=== PATIENT | female | born 1980 | race African-American/Black ===

== ENCOUNTER 2019-03-23 18:52 | Emergency (ER) | payer OTHER ==
[2019-03-23] MEDS ORDERED: ALBUTEROL SO4 2.5/IPRATROPIUM 0.5 INH SOL 3 ML VIAL.NEB. NEB ONE ×2 (18:58→19:24)
[2019-03-23] MEDS ORDERED: DEXAMETHASONE SOD PHOSPHATE 10 MG/1 ML VIAL IM ONE (18:58)
--- NOTE | 2019-03-23 18:58 | PDOC ---
Rapid Medical Evaluation Chief Complaint: Asthma Time Seen by Provider: 03/23/19 18:57 Medical Evaluation: Allergies Allergy/AdvReac Type Severity Reaction Status Date / Time iodine Allergy Verified 10/04/15 16:10 shellfish derived Allergy Verified 10/04/15 16:09 03/23/19 18:57 I have performed a brief in-person evaluation of this patient. The patient presents with a chief complaint of: h/o Asthma and 1 park cigarette smoking SOB due to Asthma since yesterday. report ran out of inhaler Pertinent physical exam findings: no respiratory distress. lungs CTAB I have ordered the following: duoneb. decadron The patient will proceed to the ED for further evaluation. 03/23/19 19:00 Discharge Disposition - Diagnosis Bronchospasm, acute Asthma Qualifiers: Asthma severity: mild Asthma persistence: intermittent Asthma complication type : with acute exacerbation Qualified Code(s): J45.21 - Mild intermittent asthma with (acute) exacerbation - Discharge Dispostion Condition at time of disposition: Stable - Referrals - Patient Instructions - Post Discharge Activity
[2019-03-23 18:59] VITALS: BP 154/79; PULSE 94; TEMP 98.2; BMI 46.5
[2019-03-23] MEDS ORDERED: DEXAMETHASONE SOD PHOSPHATE 4 MG/1 ML VIAL ONE (19:24)
--- NOTE | 2019-03-23 19:35 | PDOC ---
History of Present Illness - General Chief Complaint: Asthma Stated Complaint: SOB Time Seen by Provider: 03/23/19 18:57 History Source: Patient Exam Limitations: No Limitations - History of Present Illness Initial Comments: 03/23/19 19:26 Patient is here with complaints of asthma exacerbation. States acute exacerbations are becoming more frequent although admits is a smoker and has seasonal ALLERGIES all of which exacerbate her asthma. Denies fever, headache or earache sore throat pain. States ran out of her Proventil pump 03/23/19 19:27 03/23/19 19:37 Timing/Duration: reports: getting worse Severity: reports: mild, moderate Possible Cause: Yes: allergen exposure, smoke exposure Modifying Factors: improves with: albuterol inhaler, coughing Associated Symptoms: reports: chest pain/soreness, cough, nasal congestion, nasal drainage. denies: fever/chills Past History - Travel Traveled outside of the country in the last 30 days: No Close contact w/someone who was outside of country & ill: No - Past Medical History Allergies/Adverse Reactions: Allergies Allergy/AdvReac Type Severity Reaction Status Date / Time iodine Allergy Verified 03/23/19 18:59 shellfish derived Allergy Verified 03/23/19 18:59 Home Medications: Ambulatory Orders Albuterol Sulfate Inhaler - [Ventolin HFA Inhaler -] 1 - 2 inh PO Q4H #1 inhaler 03/23/19 predniSONE [Deltasone -] 20 mg PO BID #8 tablet 03/23/19 Asthma: Yes COPD: No - Suicide/Smoking/Psychosocial Hx Smoking History: Current every day smoker Number of Cigarettes Smoked Daily: 10 Information on smoking cessation initiated: No 'Breaking Loose' booklet given: 10/04/15 Hx Alcohol Use: No Drug/Substance Use Hx: No Review of Systems - Review of Systems Able to Perform ROS?: Yes Is the patient limited Amharic proficient: Yes Constitutional: Yes: Symptoms Reported, See HPI, Malaise. No: Fever HEENTM: Yes: Symptoms Reported, See HPI, Nose Congestion, Throat Pain Respiratory: Yes: Symptoms reported, See HPI, Cough, Wheezing Musculoskeletal: No: Symptoms Reported All Other Systems: Reviewed and Negative *Physical Exam - Vital Signs Last Vital Signs Temp Pulse Resp BP Pulse Ox 98.2 F 94 H 20 154/79 100 03/23/19 18:57 03/23/19 18:57 03/23/19 18:57 03/23/19 18:57 03/23/19 18:57 - Physical Exam General Appearance: Yes: Nourished, Appropriately Dressed, Apparent Distress, Mild Distress HEENT: positive: EOMI, SHAWNA, Normal ENT Inspection, TMs Normal, Pharynx Normal ( did posterior sinus drainage), Nasal Congestion, Rhinorrhea Neck: positive: Supple. negative: Tender, Lymphadenopathy (R), Lymphadenopathy (L) Respiratory/Chest: positive: Wheezing. negative: Lungs Clear (tight inspiratory breath sounds with expiratory wheezing worse on the left than the right), Normal Breath Sounds, Respiratory Distress Cardiovascular: positive: Regular Rhythm Gastrointestinal/Abdominal: positive: Soft. negative: Tender Extremity: positive: Normal Capillary Refill, Normal Inspection Integumentary: positive: Dry, Warm, Pale Neurologic: positive: creative engagement director II-XII NML intact, Fully Oriented, Alert, Normal Mood/ Affect, Normal Response, Motor Strength 5/5 Progress Note - Progress Note Progress Note: Asthma exacerbation, much improved after DuoNeb rid administration. *DC/Admit/Observation/Transfer Diagnosis at time of Disposition: Bronchospasm, acute Asthma Qualifiers: Asthma severity: mild Asthma persistence: intermittent Asthma complication type : with acute exacerbation Qualified Code(s): J45.21 - Mild intermittent asthma with (acute) exacerbation - Discharge Dispostion Disposition: HOME Condition at time of disposition: Stable - Prescriptions Prescriptions: Albuterol Sulfate Inhaler - [Ventolin HFA Inhaler -] 1 - 2 inh PO Q4H #1 inhaler - Referrals Referrals: Andrea Avendano [Primary Care Provider] - - Patient Instructions Printed Discharge Instructions: Asthma -- Adult Additional Instructions: Rest, drink lots of fluids: Teas, water, soups, Pedialyte Saltwater gargles Steamy showers/seem to face break up mucus Avoid contact with others until fevers and cough resolved Lots of handwashing and good hygiene Continue [id number] medications for symptomatic relief Tylenol or Motrin for fever and pain Continue albuterol inhaler , 2 puffs every 4-6 hours for the next 2 days then as needed for continued cough Prednisone as directed until completed Followup with private physician in one to 2 days Return to emergency department / pediatric hospital for worsened symptoms, fevers, dehydration - Post Discharge Activity Forms/Work/School Notes: Back to Work
== END 2019-03-23 19:53 | disposition home or self-care (01) ==
LOC: JERFT 18:52
PROC: 3E0233Z Introduction of Anti-inflammatory into Muscle, Percutaneous Approach (ICD-10-PCS; principal; 2019-03-23)
PROC: 3E0F7GC Introduction of Other Therapeutic Substance into Respiratory Tract, Via Natural or Artificial Opening (ICD-10-PCS; 2019-03-23)
DX: J45.21 Mild intermittent asthma with (acute) exacerbation (principal); F17.210 Nicotine dependence, cigarettes, uncomplicated; R06.2 Wheezing
CPT/HCPCS: 99281-25; J1100

== ENCOUNTER 2019-11-13 06:26 | Emergency (ER) | payer OTHER ==
[2019-11-13 06:54] VITALS: BMI 35.9
--- NOTE | 2019-11-13 07:03 | PDOC ---
History of Present Illness - General Chief Complaint: Cold Symptoms Stated Complaint: ASTHMA Time Seen by Provider: 11/13/19 07:02 - History of Present Illness Initial Comments: HPI: 39yo F with PMH of asthma presenting with shortness of breath since this morning. Patient state her symptoms feel like her asthma which can be triggered by her allergy to cats and cold weather, of which patient has been exposed to at home. Feeling better in the ED now that she is away from those things. Has used her inhaler at home such that it has run out. Also has a nebulizer machine , but it has been non-functional due to broken tubing. Never been intubated or hospitalized for asthma. Last had an exacerbation about a month ago for which she was prescribed steroids. Reports congestion and dry cough. No chest pain. Denies sick contacts or recent travel. No fevers or chills. ROS: Constitutional: no fever, no chills HEENT: no throat pain, no dysphagia Cardiovascular: no chest pain, no palpitations Respiratory: +cough, +shortness of breath Gastrointestinal: no abdominal pain, no nausea Genitourinary: no dysuria, no hematuria Musculoskeletal: no myalgia, no arthralgia Skin: no rash, no itching Neurologic: no headache, no weakness PE: General: Awake, alert, and fully oriented, in no acute distress Head: No signs of trauma Eyes: EOMI, sclera anicteric ENT: Moist mucus membranes Neck: Normal ROM, supple Lungs: Scant wheezes at left base, otherwise clear lungs; Normal breath sounds Cardio: Regular rhythm, S1 and S2 present Abdomen: Soft, nontender Extremities: Normal range of motion, Distal pulses present SKIN: Warm, Dry, normal turgor Neurologic: Cranial nerves II through XII grossly intact. Normal speech ED Course/MDM: DDX including but not limited to asthma exacerbation, pneumonia, URI, PE, ACS Presentation consistent with pneumonia with wheezes on exam Patient is afebrile, I have low suspicion for pneumonia Will treat with duoneb and reassess 11/13/19 07:03 Improved lung exam Prescriptions sent to pharmacy including flovent, albuterol inhaler, and nebulizer kit Return precautions Stable for discharge Past History - Past Medical History Allergies/Adverse Reactions: Allergies Allergy/AdvReac Type Severity Reaction Status Date / Time iodine Allergy Verified 11/13/19 06:53 Penicillins Allergy Verified 11/13/19 07:55 shellfish derived Allergy Verified 11/13/19 06:53 Home Medications: Ambulatory Orders Albuterol Sulfate Inhaler - [Ventolin HFA Inhaler -] 1 - 2 inh PO Q4H #1 inhaler 03/23/19 predniSONE [Deltasone -] 20 mg PO BID #8 tablet 03/23/19 Albuterol Sulfate Inhaler - [Ventolin Hfa Inhaler -] 1 - 2 inh PO Q4H #1 inhaler 11/13/19 Fluticasone Propionate [Flovent Hfa] 44 mcg IH BID #1 inh 11/13/19 Nebulizer Accessories [Reusable Nebulizer Kit] 1 each MC PRN PRN #1 kit Asthma: Yes COPD: No - Psycho Social/Smoking Cessation Hx Smoking History: Never smoked Number of Cigarettes Smoked Daily: 10 'Breaking Loose' booklet given: 10/04/15 Hx Alcohol Use: No Drug/Substance Use Hx: No *Physical Exam - Vital Signs Last Vital Signs Temp Pulse Resp BP Pulse Ox 98.1 F 79 20 134/92 99 11/13/19 06:30 11/13/19 06:30 11/13/19 06:30 11/13/19 06:30 11/13/19 06:30 Discharge - Discharge Information Problems reviewed: Yes Clinical Impression/Diagnosis: Asthma Qualifiers: Asthma severity: mild Asthma persistence: unspecified Asthma complication type : unspecified Qualified Code(s): J45.909 - Unspecified asthma, uncomplicated Condition: Improved Disposition: HOME - Additional Discharge Information Prescriptions: Albuterol Sulfate Inhaler - [Ventolin Hfa Inhaler -] 1 - 2 inh PO Q4H #1 inhaler Fluticasone Propionate [Flovent Hfa] 44 mcg IH BID #1 inh Nebulizer Accessories [Reusable Nebulizer Kit] 1 each MC PRN PRN #1 kit PRN Reason: Asthma - Follow up/Referral Referrals: Andrea Avendano [Primary Care Provider] - - Patient Discharge Instructions Patient Printed Discharge Instructions: DI for Asthma -- Adult Additional Instructions: You were seen in the emergency department for shortness of breath. You received a breathing treatment which improved your symptoms. Follow up with your primary care physician within 72 hours to discuss this ED visit and for further evaluation of your symptoms. Your care is not complete until you do so. Call and make an appointment. We sent prescriptions to your pharmacy. Take as instructed. Continue taking home medications as prescribed. Call for emergency medical services or go to the emergency room right away if any of the following occurs: Difficulty breathing, unrelieved by medications Tightness in chest, unrelieved by medications If you think you have an emergency, call for medical help right away. - Post Discharge Activity Work/Back to School Note: Back to Work
[2019-11-13] MEDS ORDERED: ALBUTEROL SO4 2.5/IPRATROPIUM 0.5 INH SOL 3 ML VIAL.NEB. NEB ONE ×2 (07:17→07:31)
[2019-11-13 10:33] VITALS: BP 134/90; PULSE 80; TEMP 97.8
--- NOTE | 2019-11-13 10:37 | PDOC ---
Attending Attestation - Resident Resident Name: Cally Kowalski - ED Attending Attestation I have performed the following: I have examined & evaluated the patient, The case was reviewed & discussed with the resident, I agree w/resident's findings & plan - HPI HPI: 11/13/19 10:17 39y/o F with h/o mild persistent asthma (self-treats with albuterol daily) possibly triggered by her cats at home, ran out of albuterol and machine broke recently, presents now with 1 week progressive cough/congestion and wheezing. no f/c, no chest pain or palpitations. Seen after received nebs in ED, feels markedly improved. no recent travel. - Physicial Exam PE: 11/13/19 10:37 VSS alert, obese, nad speaking full sentences op clear, no stridor s1s2 rrr, symmetric breath sounds with good air movement, diffuse expiratory wheeze, no focally decreased breath sound or prolonged expiration. no edema/calf ttp - Medical Decision Making 11/13/19 10:38 39y/o h/o mild persistent asthma, possibly allergic component, with wheeze/ asthma exacerbation without hypoxia, likely in the setting of medication non- compliance. Meds also likely suboptimal given daily need, does not have hospice coordinator. received nebs, feels better will d/c on inhaled steroids for daily use, refer to pulmonary understands return criteria
== END 2019-11-13 10:20 | disposition home or self-care (01) ==
LOC: JER 06:26
PROC: 3E0F7GC Introduction of Other Therapeutic Substance into Respiratory Tract, Via Natural or Artificial Opening (ICD-10-PCS; principal; 2019-11-13)
DX: J45.909 Unspecified asthma, uncomplicated (principal)
CPT/HCPCS: 94640; 99281-25

== ENCOUNTER 2020-02-09 15:35 | Emergency (ER) | payer OTHER ==
[2020-02-09 15:43] VITALS: BP 136/85; PULSE 75; TEMP 98.7; BMI 47.9
== END 2020-02-09 16:11 | disposition home or self-care (01) ==
LOC: JERFT 15:35
DX: N89.8 Other specified noninflammatory disorders of vagina (principal)
CPT/HCPCS: 87070; 87205; 99283-25